=== PATIENT | female | born 1960 | race Caucasian/White ===

== ENCOUNTER 2017-07-30 11:00 | Emergency (ER) | payer OTHER ==
[~2017-07-30] VITALS: Ht 167.6 cm; Wt 98.9 kg
[~2017-07-30 11:00] MED LIST: ALBU90OI INH; ALBU90OI6 INH; AMIT10 PO; AMIT25 PO; AMLO5 PO; AMOCLA875 PO; ASPI81CH PO; ASPI81EC PO; B-COMPLEX; Bactrim Ds Tab1 EACH PO; CEPH500 PO; CHOLESTEROL MED; COLC.6 PO; Cipro500 MG PO; DIABETIC PILL; ERGO400 PO; FENO145 PO; FISH1000 PO; GABA100 PO; IBUP200 PO; IBUP800 PO; INDO50 PO; LEVFLO500 PO; LISI5 PO; LOSA50 PO; LOVA40 PO; MED FOR HTN; METF500C PO; METO25ER PO; Metoprolol Succ25 MG PO; NAPR500 PO; NITR.4SL SL; NITR.6SL SL; Naprosyn500 MG PO; OMEP40CA12 PO; OXYACE5T PO; PRAV20 PO; PROACE100 PO; Percocet 5-3251 EACH PO; Prednisone20 MG PO; Pyridium200 MG PO; QVAR7.3 G1 IH; SERT25 PO; SULTRIDS PO; VITNEPH PO
[2017-07-30 14:13] LABS: Source, Urine Catheter
[2017-07-30 14:17] LABS: Bilirubin, Urine Neg (Neg); Blood, Urine 4+ (Neg); Glucose Qualitative, Urine Neg (Neg); Ketones, Urine Neg (Neg); Leukocyte Esterase, Urine 2+ (Neg); Nitrite, Urine Pos (Neg); Protein, Urine 2+ (Neg); Specific Gravity, Urine 1.015 (1.003-1.022); Urobilinogen, Urine NORM (Normal); pH, Urine 6.5 (5.0-8.0)
[2017-07-30 14:23] LABS: Appearance, Urine Cloudy (Clear); Color, Urine Yellow (P-Yellow)
[2017-07-30 14:25] LABS: Red Blood Cells, Urine Not Seen /hpf (0-2); Squamous Epithelial Cells Not Seen /hpf (Few); White Blood Cells, Urine Not Seen /hpf (0-5)
[2017-07-30 14:26] LABS: Amorphous Mod (0-Heavy); Bacteria Many /hpf
== END 2017-07-30 14:17 | disposition home or self-care (01) ==
LOC: ER 11:00
PROVIDERS: Emergency Medicine
DX: T83.090A Other mechanical complication of cystostomy catheter, initial encounter (principal); N31.9 Neuromuscular dysfunction of bladder, unspecified; I10 Essential (primary) hypertension; F17.200 Nicotine dependence, unspecified, uncomplicated; Z88.5 Allergy status to narcotic agent; Z88.1 Allergy status to other antibiotic agents; Z79.899 Other long term (current) drug therapy; Z79.52 Long term (current) use of systemic steroids
CPT/HCPCS: 81001; 87086; 99283

== ENCOUNTER 2018-01-20 10:54 | Emergency (ER) | payer OTHER ==
[~2018-01-20] VITALS: Ht 167.6 cm; Wt 93.4 kg
[2018-01-20 12:27] LABS: BASOPHILS ABSOLUTE AUTO 0.06 K/mm3 (0.00-0.23); BASOPHILS PERCENT AUTO 1 % (0-2); EOSINOPHILS ABSOLUTE AUTO 0.33 K/mm3 (0.00-0.68); EOSINOPHILS PERCENT AUTO 3 % (0-6); Hematocrit 45.1 % (33.0-51.0); Hemoglobin 14.8 g/dL (11.5-16.0); IMMATURE GRAN ABSOLUTE AUTO 0.04 K/mm3 (0.00-0.10); IMMATURE GRAN PERCENT AUTO 0 % (0-1); LYMPHOCYTES ABSOLUTE AUTO 2.63 K/mm3 (0.84-5.20); LYMPHOCYTES PERCENT AUTO 25 % (21-46); MONOCYTES ABSOLUTE AUTO 0.54 K/mm3 (0.16-1.47); MONOCYTES PERCENT AUTO 5 % (4-13); Mean Corpuscular HGB 30.1 pg (26.0-34.0); Mean Corpuscular HGB Conc 32.8 g/dL (31.5-36.5); Mean Corpuscular Volume 92 fL (80-100); Mean Platelet Volume 11.3 fL (9.1-12.4); NEUTROPHILS ABSOLUTE AUTO 6.76 K/mm3 (1.96-9.15); NEUTROPHILS PERCENT AUTO 65 % (41-73); Platelet Count 220 K/mm3 (150-400); RDW Coefficient Variation 13.5 % (11.7-14.2); RDW Standard Deviation 45.8 fL (35.1-46.3); Red Blood Cell Count 4.91 M/mm3 (3.80-5.20); White Blood Cell Count 10.36 K/mm3 (4.00-11.30)
[2018-01-20 12:33] LABS: Alanine Aminotransfer (ALT/SGP 25 U/L (12-78); Albumin, Blood 3.7 g/dL (3.4-5.0); Albumin/Globulin Ratio 0.9 (0.8-1.8); Alk Phos 90 U/L (50-136); Anion Gap 6 mmol/L (6-16); Aspartate Aminotrans (AST/SGOT 15 U/L (12-37); Bilirubin, Total 0.4 mg/dL (0.1-1.0); Blood Urea Nitrogen 13 mg/dL (8-24); Bun/Creatinine Ratio 18.7 (12.0-20.0); CO2, Blood 26 mmol/L (21-32); Calcium, Blood 9.1 mg/dL (8.5-10.1); Chloride, Blood 111 mmol/L (98-108); Globulin, Blood 3.9 g/dL (2.2-4.0); Glomerular Filtration Rate >60 (60-); Glucose, Blood 92 mg/dL (70-99); Sodium, Blood 143 mmol/L (136-145); Total Protein, Blood 7.6 g/dL (6.4-8.2)
[2018-01-20] MEDS ORDERED: Percocet 5-3251 EACH PO (13:56)
== END 2018-01-20 14:27 | disposition home or self-care (01) ==
LOC: ER 10:54
PROVIDERS: Emergency Medicine
DX: R10.2 Pelvic and perineal pain (principal); I10 Essential (primary) hypertension; F17.200 Nicotine dependence, unspecified, uncomplicated; Z88.5 Allergy status to narcotic agent; Z88.1 Allergy status to other antibiotic agents; Z88.8 Allergy status to other drugs, medicaments and biological substances; Z79.52 Long term (current) use of systemic steroids; Z79.51 Long term (current) use of inhaled steroids
CPT/HCPCS: 36415; 74177; 80053; 85025; 96374; 99284-25; J2405; Q9967

== ENCOUNTER → 2018-01-31 | Outpatient (CLI) | payer OTHER ==
[2018-01-31 14:43] LABS: Source, Urine Clean Catch
[2018-01-31 17:59] LABS: Appearance, Urine Hazy (Clear); Bilirubin, Urine Neg (Neg); Blood, Urine 2+ (Neg); Color, Urine Yellow (P-Yellow); Glucose Qualitative, Urine Neg (Neg); Ketones, Urine Neg (Neg); Leukocyte Esterase, Urine 3+ (Neg); Nitrite, Urine Pos (Neg); Protein, Urine 2+ (Neg); Urobilinogen, Urine NORM (Normal)
[2018-01-31 18:44] LABS: White Blood Cells, Urine 25-50 /hpf (0-5)
[2018-01-31 18:45] LABS: Amorphous Light (0-Heavy); Bacteria Mod /hpf; Squamous Epithelial Cells Few /hpf (Few)
== END ==
LOC: EDSTATUS 13:03 → LAB 14:30 → LAB SHORT 14:30
PROVIDERS: Nurse Practitioner Family
DX: N89.8 Other specified noninflammatory disorders of vagina (principal); R82.90 Unspecified abnormal findings in urine
CPT/HCPCS: 81001; 87086

== ENCOUNTER → 2018-02-05 | Outpatient (CLI) | payer OTHER ==
[2018-02-05 11:26] LABS: Source, Urine Clean Catch
[2018-02-05 12:38] LABS: Appearance, Urine Clear (Clear); Bilirubin, Urine Neg (Neg); Blood, Urine 4+ (Neg); Color, Urine Yellow (P-Yellow); Glucose Qualitative, Urine Neg (Neg); Ketones, Urine Neg (Neg); Leukocyte Esterase, Urine 2+ (Neg); Nitrite, Urine Neg (Neg); Protein, Urine 1+ (Neg); Urobilinogen, Urine NORM (Normal); pH, Urine 6.5 (5.0-8.0)
[2018-02-05 12:54] LABS: Bacteria Few /hpf; Calcium Oxalate Crystals Rare /hpf; Squamous Epithelial Cells Few /hpf (Few)
[2018-02-05 14:36] LABS: Candida species (DNA Probe) Negative (NEGATIVE); G. vaginalis (DNA Probe) Negative (NEGATIVE); T. vaginalis (DNA Probe) Negative (NEGATIVE)
== END ==
LOC: LAB SHORT 11:20 → LAB 11:20
PROVIDERS: Nurse Practitioner Family
DX: R82.90 Unspecified abnormal findings in urine (principal); N89.8 Other specified noninflammatory disorders of vagina
CPT/HCPCS: 81001; 87480; 87510; 87660

== ENCOUNTER 2018-03-29 11:01 | Emergency (ER) | payer OTHER ==
[~2018-03-29] VITALS: Ht 167.6 cm; Wt 93.0 kg
[2018-03-29 12:45] LABS: Calcium, Ionized (POC) 1.17 mmol/L (1.10-1.46); Chloride (POC) 105 mmol/L (98-108); Creatinine (POC) 0.6 mg/dL (0.6-1.0); Glucose (ISTAT POC) 88 mg/dL (70-99); Hemoglobin (POC) 14.6 g/dL (12.0-16.0); Potassium (POC) 3.8 mmol/L (3.5-5.5); Sodium (POC) 144 mmol/L (135-148); Total CO2 (POC) 26 mmol/L (21-32)
[2018-03-29 13:16] LABS: Source, Urine Catheter
[2018-03-29 13:31] LABS: Bilirubin, Urine Neg (Neg); Blood, Urine 4+ (Neg); Glucose Qualitative, Urine Neg (Neg); Ketones, Urine Neg (Neg); Leukocyte Esterase, Urine 3+ (Neg); Nitrite, Urine Pos (Neg); Protein, Urine 2+ (Neg); Specific Gravity, Urine 1.015 (1.003-1.022); Urobilinogen, Urine NORM (Normal)
[2018-03-29 13:42] LABS: Appearance, Urine Cloudy (Clear); Color, Urine Yellow (P-Yellow)
[2018-03-29 13:50] LABS: Bacteria Many /hpf; Squamous Epithelial Cells Few /hpf (Few)
== END 2018-03-29 13:31 | disposition home or self-care (01) ==
LOC: ER 11:01
PROVIDERS: Emergency Medicine
DX: Z46.6 Encounter for fitting and adjustment of urinary device (principal); Z88.5 Allergy status to narcotic agent; Z88.8 Allergy status to other drugs, medicaments and biological substances; Z88.1 Allergy status to other antibiotic agents; Z79.52 Long term (current) use of systemic steroids; I10 Essential (primary) hypertension; F17.200 Nicotine dependence, unspecified, uncomplicated
CPT/HCPCS: 36415; 51705; 80047; 81001; 85014; 87077; 87086; 87186; 99283-25; C2627

== ENCOUNTER 2018-06-12 10:07 | Emergency (ER) | payer OTHER ==
[~2018-06-12] VITALS: Ht 167.6 cm; Wt 95.7 kg
== END 2018-06-12 10:47 | disposition home or self-care (01) ==
LOC: ER 10:07
DX: T83.098A Other mechanical complication of other urinary catheter, initial encounter (principal); I10 Essential (primary) hypertension; Z87.891 Personal history of nicotine dependence
CPT/HCPCS: 51102; 51798; 99283-25

== ENCOUNTER 2020-03-14 05:37 | Day surgery (SDC) | payer OTHER ==
[~2020-03-14] VITALS: Ht 167.6 cm; Wt 108.9 kg
[~2020-03-14 05:37] MED LIST changes: +ALLO300 PO; +AMLODIPINE BESY10 MG PO; +CEFP200 PO; +CHLO25B PO; +CYANOCOBALAMIN 500 MG PO; +DULOXETINE HCL60 M1 PO; +MULTIVITAMINS PO; +NAPROXEN500 MG PO; +OMEP20ER PO; +SYMBICORT 160-4.6 GM INH; +VIT D PO; +[UNRECOGNIZED DRUG - OTHER] PO
--- NOTE | 2020-03-14 07:16 | NUR ---
INTO [facility] VIA W/C ABLE TO AMBULATE SHORT DISTANCES. SUPRAPUBIC CATHETER PATENT, PROVIDED DRAINAGE BAG. History, Chart, Medications and Allergies reviewed before start of procedure.Patient confirms NPO status and agrees with scheduled surgery. Patient reports completing Chlorhexadine shower X2 prior to admission to hospital.Surgical site prepped with 2% Chlorhexidine cloth wipe. Lungs clear T/O to Auscultation.
--- NOTE | 2020-03-14 14:18 | NUR ---
THIS RN RECIEVED REPORT AND IS ASSUMING CARE OF PT. PT SLEEPING. CALL LIGHT IN REACH.
--- NOTE | 2020-03-14 14:40 | NUR ---
THERAPY IN WITH PT, "BELT PRESS OPERATOR" HERE, VSS. PT ON RA.
--- NOTE | 2020-03-14 17:12 | NUR ---
SHIFT SUMMARY PT EATING AND DRINKING, WORKED WITH THERAPY. PT UP TO CHAIR. PT AMBULATED IN HALLWAY WITH WALKER, GB, AND ASSIST. "ROTOR ASSEMBLER" PRESENT WHEN PT WORKED WITH THERAPY. PT CALL LIGHT IN REACH. WARE DRAINING WELL. PT DRINKING LOTS OF WATER SHE NORMALLY DOES PER PT.
[2020-03-15 03:50] LABS: BASOPHILS ABSOLUTE AUTO 0.04 K/mm3 (0.00-0.23); BASOPHILS PERCENT AUTO 0 % (0-2); EOSINOPHILS ABSOLUTE AUTO 0.01 K/mm3 (0.00-0.68); EOSINOPHILS PERCENT AUTO 0 % (0-6); Hemoglobin 10.8 g/dL (11.5-16.0); IMMATURE GRAN ABSOLUTE AUTO 0.11 K/mm3 (0.00-0.10); IMMATURE GRAN PERCENT AUTO 1 % (0-1); LYMPHOCYTES ABSOLUTE AUTO 2.15 K/mm3 (0.84-5.20); LYMPHOCYTES PERCENT AUTO 11 % (21-46); MONOCYTES ABSOLUTE AUTO 1.56 K/mm3 (0.16-1.47); MONOCYTES PERCENT AUTO 8 % (4-13); Mean Corpuscular HGB 30.2 pg (26.0-34.0); Mean Corpuscular HGB Conc 31.8 g/dL (31.5-36.5); Mean Corpuscular Volume 95 fL (80-100); Mean Platelet Volume 11.1 fL (9.1-12.4); NEUTROPHILS ABSOLUTE AUTO 16.57 K/mm3 (1.96-9.15); NEUTROPHILS PERCENT AUTO 81 % (41-73); Platelet Count 224 K/mm3 (150-400); RDW Coefficient Variation 14.1 % (11.7-14.2); RDW Standard Deviation 49.2 fL (35.1-46.3); Red Blood Cell Count 3.58 M/mm3 (3.80-5.20); White Blood Cell Count 20.44 K/mm3 (4.00-11.30)
[2020-03-15 04:07] LABS: Anion Gap 6 mmol/L (6-16); Blood Urea Nitrogen 24 mg/dL (8-24); Bun/Creatinine Ratio 28.4 (12.0-20.0); CO2, Blood 27 mmol/L (21-32); Calcium, Blood 8.7 mg/dL (8.5-10.1); Chloride, Blood 104 mmol/L (98-108); Creatinine, Blood 0.85 mg/dL (0.40-1.00); Glomerular Filtration Rate >60 (60-); Glucose, Blood 268 mg/dL (70-99); Magnesium, Blood 2.1 mg/dL (1.6-2.4); Potassium, Blood 4.3 mmol/L (3.5-5.5); Sodium, Blood 137 mmol/L (136-145)
--- NOTE | 2020-03-15 05:18 | NUR ---
SHIFT SUMMARY: PT POD#1 FOR RT SIVAN. AQUACEL DRESSING C/D/I WITH POLAR PACK IN PLACE. MEDICATED FOR PAIN WITH TORADOL AND TYLENOL IN BEGINNING OF SHIFT. PT BEGAN COMPLAINING OF SIGNIFICANT PAIN AT APPROX 0250. MEDICATED WITH OXY PER EMAR WHICH WAS INEFFECTIVE REQUIRING ADMIN OF 0.5MG IV DILAUDID THIS MORNING. PT DENIES N/T. ABLE TO WIGGLE TOES. CAP REFILL <3 SEC. VSS. AMBULATING WITH SBA AND FWW. ADEQUATE URINE OUTPUT EMPTIED FROM SUPRAPUBIC CATHETER. PT SITTING IN CHAIR THIS MORNING. PLAN FOR PHYSICAL THERAPY AND POSSIBLE DISCHARGE TODAY.
--- NOTE | 2020-03-15 08:51 | NUR ---
MICKEY HERE TO SEE PT.
--- NOTE | 2020-03-15 09:36 | NUR ---
PT WORKING WITH THERAPY.
[2020-03-15] MEDS ORDERED: ACET500 PO (10:09)
[2020-03-15] MEDS ORDERED: OXAYDO5 M1 PO (10:17)
--- NOTE | 2020-03-15 11:10 | NUR ---
DISCHARGE: PT EATING AND DRINKING, PRODUCING URINE, PASSING GAS. PT BEEN CLEARED BY THERAPY TO GO HOME. PT MITER SAWYER PRESENT WITH THERAPY. PT/MITER SAWYER REPORTS UNDERSTANDING OF DISCHARGE INSTRUCTIONS INCLUDING DRESSINGS, POLAR PAC, MEDICATIONS. PT PAIN TOLERABLE ON PO PAIN MEDICATION. PT SENT WITH DRESSINGS, POLAR PAC, SCRIPT AND OTHER PAPERWORK. PT GETTING RIDE HOME.
== END 2020-03-15 11:13 | disposition home or self-care (01) ==
LOC: ORSCMMR 05:37 → ORD 07:30 → ORSCMMR 07:30 → SURS 12:00 → ORSCMMR 03-15 11:13 → SURS 03-15 11:13
PROVIDERS: Orthopaedic Surgery
PROC: 0SR90JA Replacement of Right Hip Joint with Synthetic Substitute, Uncemented, Open Approach (ICD-10-PCS; principal; 2020-03-14 07:30)
DX: M16.11 Unilateral primary osteoarthritis, right hip (principal); I10 Essential (primary) hypertension; I25.10 Atherosclerotic heart disease of native coronary artery without angina pectoris; J44.9 Chronic obstructive pulmonary disease, unspecified; F17.210 Nicotine dependence, cigarettes, uncomplicated; E66.01 Morbid (severe) obesity due to excess calories; Z68.38 Body mass index [BMI] 38.0-38.9, adult; Z79.899 Other long term (current) drug therapy; Z79.82 Long term (current) use of aspirin
CPT/HCPCS: 36415; 72170; 80048; 83735; 85025; 88300; 97110; 97116; 97162; 97530; A9270; A9270-GY; C1776; J0171; J0330; J0461; J0690; J0735; J1100; J1170; J1885; J2250; J2370; J2405; J2704; J2795; J3010; J7120

== ENCOUNTER → 2020-09-09 | Outpatient (CLI) | payer OTHER ==
[~2020-09-09] MED LIST changes: +ACET500 PO; +OXAYDO5 M1 PO
[2020-09-09 11:58] LABS: BASOPHILS ABSOLUTE AUTO 0.09 K/mm3 (0.00-0.23); BASOPHILS PERCENT AUTO 1 % (0-2); EOSINOPHILS ABSOLUTE AUTO 0.29 K/mm3 (0.00-0.68); EOSINOPHILS PERCENT AUTO 3 % (0-6); Hematocrit 46.5 % (33.0-51.0); Hemoglobin 15.1 g/dL (11.5-16.0); IMMATURE GRAN ABSOLUTE AUTO 0.05 K/mm3 (0.00-0.10); IMMATURE GRAN PERCENT AUTO 0 % (0-1); LYMPHOCYTES PERCENT AUTO 32 % (21-46); MONOCYTES PERCENT AUTO 6 % (4-13); Mean Corpuscular HGB 29.2 pg (26.0-34.0); Mean Corpuscular HGB Conc 32.5 g/dL (31.5-36.5); Mean Corpuscular Volume 90 fL (80-100); Mean Platelet Volume 11.4 fL (9.1-12.4); NEUTROPHILS ABSOLUTE AUTO 6.81 K/mm3 (1.96-9.15); NEUTROPHILS PERCENT AUTO 59 % (41-73); Platelet Count 275 K/mm3 (150-400); RDW Coefficient Variation 15.1 % (11.7-14.2); RDW Standard Deviation 49.4 fL (35.1-46.3); Red Blood Cell Count 5.18 M/mm3 (3.80-5.20); White Blood Cell Count 11.64 K/mm3 (4.00-11.30)
[2020-09-09 12:25] LABS: Anion Gap 9 mmol/L (6-16); Blood Urea Nitrogen 15 mg/dL (8-24); Bun/Creatinine Ratio 20.3 (12.0-20.0); CO2, Blood 28 mmol/L (21-32); Calcium, Blood 9.5 mg/dL (8.5-10.1); Chloride, Blood 104 mmol/L (98-108); Creatinine, Blood 0.74 mg/dL (0.40-1.00); Glomerular Filtration Rate >60 (60-); Glucose, Blood 131 mg/dL (70-99); Potassium, Blood 4.5 mmol/L (3.5-5.5); Sodium, Blood 141 mmol/L (136-145); Thyroid Stimulating Hormone 3.811 uIU/mL (0.360-4.800)
== END | disposition home or self-care (01) ==
LOC: LAB SHORT 11:53 → LAB EV 11:53
PROVIDERS: Physician Assistant Surgical
DX: M79.2 Neuralgia and neuritis, unspecified (principal)
CPT/HCPCS: 80048; 82607; 84443; 85025

== ENCOUNTER 2020-12-09 08:57 | Emergency (ER) | payer OTHER ==
[~2020-12-09] VITALS: Ht 167.6 cm; Wt 108.9 kg
[2020-12-09 10:15] LABS: Source, Urine Catheter
[2020-12-09 10:34] LABS: Appearance, Urine Clear (Clear); Bilirubin, Urine Neg (Neg); Blood, Urine 2+ (Neg); Color, Urine Yellow (P-Yellow); Glucose Qualitative, Urine Neg (Neg); Ketones, Urine Neg (Neg); Leukocyte Esterase, Urine 1+ (Neg); Nitrite, Urine Pos (Neg); Protein, Urine 3+ (Neg); Urobilinogen, Urine NORM (Normal)
[2020-12-09 11:00] LABS: Bacteria Mod /hpf; Squamous Epithelial Cells Rare /hpf (Few)
[2020-12-09 11:04] LABS: Renal Epithelial Not Seen /hpf (0-Rare); Transitional Epithelial Cells Mod /hpf (0-Rare)
[2020-12-09] MEDS ORDERED: LEVO750 PO (11:14)
[2020-12-09] MEDS ORDERED: HYDR1TAB94 PO (11:14)
== END 2020-12-09 11:46 | disposition home or self-care (01) ==
LOC: ER 08:57
PROVIDERS: Physician Assistant
DX: N39.0 Urinary tract infection, site not specified (principal); Z79.82 Long term (current) use of aspirin; Z79.899 Other long term (current) drug therapy
CPT/HCPCS: 76857; 81001; 87086; 99284-25; A9270

== ENCOUNTER 2021-07-24 06:04 | Day surgery (SDC) | payer OTHER ==
[~2021-07-24] VITALS: Ht 167.6 cm; Wt 110.3 kg
[~2021-07-24 06:04] MED LIST changes: +ATOR20; +ATOR20 PO; +BUDE.25 INH; +DICLOFENAC SOD100 GM TOP; +HYDR1TAB94 PO; +LEVO750 PO; +METF500 PO; +NITRO-DUR1 EAC1 TOP; +Prinivil10 MG PO
[2021-07-24] MEDS ORDERED: IBUP200 PO (06:24)
--- NOTE | 2021-07-24 08:28 | NUR ---
07/24/21 0828 Nelly Woodall PATIENT ARRIVED TO OR WITH SUPRAPUBIC CATHETER IN PLACE.
--- NOTE | 2021-07-24 10:38 | NUR ---
DEVELOPMENT ASSOCIATE HERE FOR HIP XRAY. MEDICATED FOR PAIN WHEN PATIENT REPOSITIONED FOR XRAY, BEGAN TO MOAN LOUDLY AND FURROW BROW. PATIENT WOULD NOT GIVE PAIN NUMBER ON PAIN SCALE.
--- NOTE | 2021-07-24 10:39 | NUR ---
POST ANALGESIC AND XRAY COMPLETE, PATIENT LESS VERBAL WITH MOANING AND CONTINUES TO MOAN. PATIENT NOW RATES PAIN 9-10/10 TO LEFT HIP.
--- NOTE | 2021-07-24 10:47 | NUR ---
POLAR ICE PAIN APPLIED TO LEFT HIP.
--- NOTE | 2021-07-24 17:02 | NUR ---
SHIFT SUMMARY NEW ADMIT POST L SIVAN WITH DR HINDS. INITIALLY SEVERE PAIN UNCONTROLLED WITH PAIN MEDS. PAIN IMPROVED WITH MOVEMENT AND GETTING UP TO CHAIR WITH PHYSICAL THERAPY. LEFT HIP INCISION WITH PRIMO AND AQUACEL. LEFT HIP BRUISED. TOLERATING ADA DIET. ACHS WITH SS INSULIN. POST OP VSS. IN RECLINER WITH LEGS ELEVATED AT THIS TIME. SALINE LOCKED. SUPRAPUBIC CATHETER AT BASELINE. CLEAR YELLOW URINE.
--- NOTE | 2021-07-25 04:11 | NUR ---
SUMMARY PT PAIN MANAGED WELL THROUGHOUT SHIFT. PT CATH DRAINING TO GRAVITY. PT DRESSING C/D/I. PT HAS SLEPT WELL DURING SHIFT. PT CURRENTLY SLEEPING AND IN NO DISTRESS. CALL LIGHT IN REACH.
[2021-07-25 04:47] LABS: BASOPHILS ABSOLUTE AUTO 0.03 K/mm3 (0.00-0.23); BASOPHILS PERCENT AUTO 0 % (0-2); EOSINOPHILS ABSOLUTE AUTO 0.04 K/mm3 (0.00-0.68); EOSINOPHILS PERCENT AUTO 0 % (0-6); Hematocrit 42.3 % (33.0-51.0); Hemoglobin 13.4 g/dL (11.5-16.0); IMMATURE GRAN ABSOLUTE AUTO 0.11 K/mm3 (0.00-0.10); IMMATURE GRAN PERCENT AUTO 1 % (0-1); LYMPHOCYTES ABSOLUTE AUTO 1.89 K/mm3 (0.84-5.20); LYMPHOCYTES PERCENT AUTO 12 % (21-46); MONOCYTES PERCENT AUTO 7 % (4-13); Mean Corpuscular HGB 30.2 pg (26.0-34.0); Mean Corpuscular HGB Conc 31.7 g/dL (31.5-36.5); Mean Corpuscular Volume 96 fL (80-100); Mean Platelet Volume 11.8 fL (9.1-12.4); NEUTROPHILS ABSOLUTE AUTO 13.18 K/mm3 (1.96-9.15); NEUTROPHILS PERCENT AUTO 80 % (41-73); Platelet Count 182 K/mm3 (150-400); RDW Coefficient Variation 13.2 % (11.7-14.2); RDW Standard Deviation 46.8 fL (35.1-46.3); Red Blood Cell Count 4.43 M/mm3 (3.80-5.20); White Blood Cell Count 16.45 K/mm3 (4.00-11.30)
[2021-07-25 05:09] LABS: Anion Gap 8 mmol/L (6-16); Blood Urea Nitrogen 22 mg/dL (8-24); Bun/Creatinine Ratio 27.5 (12.0-20.0); CO2, Blood 27 mmol/L (21-32); Chloride, Blood 103 mmol/L (98-108); Glomerular Filtration Rate >60 (60-); Glucose, Blood 245 mg/dL (70-99); Magnesium, Blood 2.3 mg/dL (1.6-2.4); Potassium, Blood 4.6 mmol/L (3.5-5.5); Sodium, Blood 138 mmol/L (136-145)
[2021-07-25] MEDS ORDERED: ACET500 PO (10:16)
[2021-07-25] MEDS ORDERED: OXYC5 PO (10:16)
[2021-07-25] MEDS ORDERED: HUMALOG KW100 UNIT/1 SC (12:57)
--- NOTE | 2021-07-25 13:53 | NUR ---
DISCHARGE PT PROVIDED WITH WRITTEN AND VERBAL DISCHARGE INSTRUCTIONS BY PRETTY BURCH. PRESCRIPTIONS GIVEN TO PT FOR DIABETIC SUPPLIES AND MEDICATIONS. CLEAN DRESSINGS PROVIDED. PT CLEARED THERAPY, TOLERATED PO, ABLE TO VOID AND PAIN MANAGED WITH ORAL MEDICATION PRIOR TO DISCHARGE. VSS.
== END 2021-07-25 13:15 | disposition home or self-care (01) ==
LOC: ORSCMMR 06:04 → SURS 11:51 → ORSCMMR 07-25 13:15
PROVIDERS: Orthopaedic Surgery
PROC: 0SRB0JA Replacement of Left Hip Joint with Synthetic Substitute, Uncemented, Open Approach (ICD-10-PCS; principal; 2021-07-24 07:30)
DX: M16.12 Unilateral primary osteoarthritis, left hip (principal); J44.9 Chronic obstructive pulmonary disease, unspecified; I25.10 Atherosclerotic heart disease of native coronary artery without angina pectoris; E11.9 Type 2 diabetes mellitus without complications; K21.9 Gastro-esophageal reflux disease without esophagitis; E78.5 Hyperlipidemia, unspecified; I10 Essential (primary) hypertension; Z87.891 Personal history of nicotine dependence; I25.2 Old myocardial infarction; Z79.899 Other long term (current) drug therapy; Z79.84 Long term (current) use of oral hypoglycemic drugs; E66.01 Morbid (severe) obesity due to excess calories; Z68.39 Body mass index [BMI] 39.0-39.9, adult
CPT/HCPCS: 36415; 72170; 80048; 82947; 83735; 85025; 97110; 97116; 97162; A9270; C1776; J0171; J0690; J0735; J1100; J1170; J1815; J1885; J2250; J2370; J2405; J2704; J2795; J3010; J7120

== ENCOUNTER 2021-11-23 14:51 | Emergency (ER) | payer OTHER ==
[~2021-11-23] VITALS: Ht 167.6 cm; Wt 64.9 kg
[~2021-11-23 14:51] MED LIST changes: +HUMALOG KW100 UNIT/1 SC; +OXYC5 PO
[2021-11-23 16:08] LABS: BASOPHILS ABSOLUTE AUTO 0.06 K/mm3 (0.00-0.23); BASOPHILS PERCENT AUTO 1 % (0-2); EOSINOPHILS ABSOLUTE AUTO 0.26 K/mm3 (0.00-0.68); EOSINOPHILS PERCENT AUTO 2 % (0-6); Hematocrit 47.5 % (33.0-51.0); Hemoglobin 15.6 g/dL (11.5-16.0); IMMATURE GRAN ABSOLUTE AUTO 0.07 K/mm3 (0.00-0.10); IMMATURE GRAN PERCENT AUTO 1 % (0-1); LYMPHOCYTES ABSOLUTE AUTO 3.86 K/mm3 (0.84-5.20); LYMPHOCYTES PERCENT AUTO 31 % (21-46); MONOCYTES ABSOLUTE AUTO 0.77 K/mm3 (0.16-1.47); MONOCYTES PERCENT AUTO 6 % (4-13); Mean Corpuscular HGB 29.5 pg (26.0-34.0); Mean Corpuscular HGB Conc 32.8 g/dL (31.5-36.5); Mean Corpuscular Volume 90 fL (80-100); Mean Platelet Volume 11.5 fL (9.1-12.4); NEUTROPHILS ABSOLUTE AUTO 7.44 K/mm3 (1.96-9.15); NEUTROPHILS PERCENT AUTO 60 % (41-73); Platelet Count 224 K/mm3 (150-400); RDW Coefficient Variation 13.5 % (11.7-14.2); RDW Standard Deviation 44.8 fL (35.1-46.3); Red Blood Cell Count 5.28 M/mm3 (3.80-5.20); White Blood Cell Count 12.46 K/mm3 (4.00-11.30)
[2021-11-23 16:23] LABS: Albumin, Blood 3.7 g/dL (3.4-5.0); Albumin/Globulin Ratio 0.9 (0.8-1.8); Bilirubin, Total 0.3 mg/dL (0.1-1.0); Bun/Creatinine Ratio 26.8 (12.0-20.0); Calcium, Blood 9.9 mg/dL (8.5-10.1); Creatinine, Blood 0.6 mg/dL (0.40-1.00); Globulin, Blood 4.1 g/dL (2.2-4.0); Total Protein, Blood 7.8 g/dL (6.4-8.2)
[2021-11-23 16:47] LABS: Influenza A, PCR NEGATIVE (NEGATIVE); Influenza B, PCR NEGATIVE (NEGATIVE); Resp Syncytial Virus, PCR NEGATIVE (NEGATIVE); SARS-Cov-2 (COVID-19) PCR, MMC NEGATIVE (NEGATIVE)
== END 2021-11-23 18:21 | disposition left against medical advice (07) ==
LOC: ER 14:51
PROVIDERS: Physician Assistant
DX: R51.9 Headache, unspecified (principal); R07.9 Chest pain, unspecified; Z53.21 Procedure and treatment not carried out due to patient leaving prior to being seen by health care provider; Z20.822 Contact with and (suspected) exposure to COVID-19
CPT/HCPCS: 0241U; 36415; 71045; 80053; 83880; 84484; 85025; 93005; 93010; 99282-25

== ENCOUNTER 2022-12-18 08:09 | Emergency (ER) | payer OTHER ==
[~2022-12-18] VITALS: Ht 167.6 cm; Wt 103.0 kg
[2022-12-18 10:03] LABS: BASOPHILS ABSOLUTE AUTO 0.11 K/mm3 (0.00-0.23); BASOPHILS PERCENT AUTO 1 % (0-2); EOSINOPHILS PERCENT AUTO 3 % (0-6); Hematocrit 44.5 % (33.0-51.0); Hemoglobin 14.8 g/dL (11.5-16.0); IMMATURE GRAN ABSOLUTE AUTO 0.13 K/mm3 (0.00-0.10); IMMATURE GRAN PERCENT AUTO 1 % (0-1); LYMPHOCYTES ABSOLUTE AUTO 3.57 K/mm3 (0.84-5.20); LYMPHOCYTES PERCENT AUTO 24 % (21-46); MONOCYTES ABSOLUTE AUTO 1.05 K/mm3 (0.16-1.47); MONOCYTES PERCENT AUTO 7 % (4-13); Mean Corpuscular HGB 30.4 pg (26.0-34.0); Mean Corpuscular HGB Conc 33.3 g/dL (31.5-36.5); Mean Corpuscular Volume 91 fL (80-100); Mean Platelet Volume 10.9 fL (9.1-12.4); NEUTROPHILS ABSOLUTE AUTO 9.62 K/mm3 (1.96-9.15); NEUTROPHILS PERCENT AUTO 65 % (41-73); Platelet Count 294 K/mm3 (150-400); RDW Coefficient Variation 13.2 % (11.7-14.2); RDW Standard Deviation 44.2 fL (35.1-46.3); Red Blood Cell Count 4.87 M/mm3 (3.80-5.20); White Blood Cell Count 14.88 K/mm3 (4.00-11.30)
[2022-12-18 10:23] LABS: Albumin, Blood 3.6 g/dL (3.4-5.0); Albumin/Globulin Ratio 0.9 (0.8-1.8); Bilirubin, Total 0.4 mg/dL (0.1-1.0); Bun/Creatinine Ratio 18.9 (12.0-20.0); Calcium, Blood 9.5 mg/dL (8.5-10.1); Creatinine, Blood 0.69 mg/dL (0.40-1.00); Total Protein, Blood 7.6 g/dL (6.4-8.2)
[2022-12-18] MEDS ORDERED: CEFP200 PO (12:05)
[2022-12-18] MEDS ORDERED: Percocet 7.5-31 EACH PO (12:05)
[2022-12-18 12:30] VITALS: BP 130/52
[2022-12-18 15:15] LABS: Candida species (DNA Probe) Positive (NEGATIVE); G. vaginalis (DNA Probe) Negative (NEGATIVE); T. vaginalis (DNA Probe) Negative (NEGATIVE)
[2022-12-20 02:31] LABS: CHLAMYDIA TRACHOMATIS, NAA Negative (Negative)
== END 2022-12-18 12:34 | disposition home or self-care (01) ==
LOC: ER 08:09
PROVIDERS: Physician Assistant
DX: N39.0 Urinary tract infection, site not specified (principal); R10.2 Pelvic and perineal pain; Z88.8 Allergy status to other drugs, medicaments and biological substances; Z88.1 Allergy status to other antibiotic agents; Z88.5 Allergy status to narcotic agent; Z79.899 Other long term (current) drug therapy; Z79.82 Long term (current) use of aspirin; Z79.84 Long term (current) use of oral hypoglycemic drugs; Z79.4 Long term (current) use of insulin; I10 Essential (primary) hypertension
CPT/HCPCS: 74177; 80053; 85025; 87480; 87491; 87510; 87591; 87660; 96372-59; 96374-59; 99284-25; J1170; J3010; Q9967

== ENCOUNTER 2023-01-05 11:23 | Emergency (ER) | payer OTHER ==
[~2023-01-05] VITALS: Ht 167.6 cm; Wt 99.8 kg
[~2023-01-05 11:23] MED LIST changes: +Percocet 7.5-31 EACH PO
[2023-01-05 12:00] VITALS: BP 180/118
== END 2023-01-05 12:42 | disposition left against medical advice (07) ==
LOC: ER 11:23
DX: R31.9 Hematuria, unspecified (principal); I10 Essential (primary) hypertension; I25.2 Old myocardial infarction; Z79.4 Long term (current) use of insulin; Z79.82 Long term (current) use of aspirin; Z79.84 Long term (current) use of oral hypoglycemic drugs; Z79.899 Other long term (current) drug therapy; Z87.891 Personal history of nicotine dependence; Z88.1 Allergy status to other antibiotic agents; Z88.8 Allergy status to other drugs, medicaments and biological substances; Z96.0 Presence of urogenital implants
CPT/HCPCS: 99282

== ENCOUNTER → 2023-04-17 | Outpatient (CLI) | payer OTHER ==
[2023-04-17 15:46] LABS: BASOPHILS ABSOLUTE AUTO 0.08 K/mm3 (0.00-0.23); BASOPHILS PERCENT AUTO 1 % (0-2); EOSINOPHILS ABSOLUTE AUTO 0.53 K/mm3 (0.00-0.68); EOSINOPHILS PERCENT AUTO 4 % (0-6); Hematocrit 50.4 % (33.0-51.0); Hemoglobin 15.7 g/dL (11.5-16.0); IMMATURE GRAN ABSOLUTE AUTO 0.05 K/mm3 (0.00-0.10); IMMATURE GRAN PERCENT AUTO 0 % (0-1); LYMPHOCYTES ABSOLUTE AUTO 2.81 K/mm3 (0.84-5.20); LYMPHOCYTES PERCENT AUTO 22 % (21-46); MONOCYTES ABSOLUTE AUTO 0.72 K/mm3 (0.16-1.47); MONOCYTES PERCENT AUTO 6 % (4-13); Mean Corpuscular HGB 28.6 pg (26.0-34.0); Mean Corpuscular HGB Conc 31.2 g/dL (31.5-36.5); Mean Corpuscular Volume 92 fL (80-100); Mean Platelet Volume 11.7 fL (9.1-12.4); NEUTROPHILS ABSOLUTE AUTO 8.77 K/mm3 (1.96-9.15); NEUTROPHILS PERCENT AUTO 68 % (41-73); Platelet Count 303 K/mm3 (150-400); RDW Coefficient Variation 13.6 % (11.7-14.2); RDW Standard Deviation 46.2 fL (35.1-46.3); Red Blood Cell Count 5.48 M/mm3 (3.80-5.20); White Blood Cell Count 12.96 K/mm3 (4.00-11.30)
== END | disposition home or self-care (01) ==
LOC: LAB 14:27 → LAB SHORT 14:27
PROVIDERS: Nurse Practitioner Family
DX: Z01.812 Encounter for preprocedural laboratory examination (principal)
CPT/HCPCS: 85025

== ENCOUNTER 2023-05-17 10:45 | Day surgery (SDC) | payer OTHER ==
[2023-05-17] VITALS (16 sets, daily range): BP systolic 139–192; BP diastolic 69–113
[~2023-05-17] VITALS: Ht 167.6 cm; Wt 96.4 kg
[~2023-05-17 10:45] MED LIST changes: +NAPROXEN250 M1 PO
[2023-05-17] MEDS ORDERED: METO50ER PO (11:18)
--- NOTE | 2023-05-17 12:17 | NUR ---
Ambulatory in Day Surgery. History, Chart, Medications and Allergies reviewed before start of procedure. Lungs clear T/O to Auscultation. Patient confirms NPO status and agrees with scheduled surgery. Pre-Op teaching done. Pt verbalizes understanding. Patient States Post-Procedure ride home has been arranged. PT BELONGINGS PLACED UNDERNEATH [facility] FOR SAFEKEEPING.
--- NOTE | 2023-05-17 14:20 | NUR ---
1230 PT C/O 10/10 GROIN "VAGINAL" PAIN. PT STANDING AT BEDSIDE, SWAYING BACK & FORTH. PT STS TOO PAINFUL TO SIT OR LAY IN BED. PT TEARFUL, WHIMPERING TO SELF, AT TIMES CRYING OUT. PT STS SHE DID NOT TAKE HER PAIN MEDICATION THIS AM FOR HERNIA PAIN. DENIES CHRONIC PAIN OR OTHER SOURCES OF DISCOMFORT. UPON ARRIVAL TO [facility], PT REQUESTED ICE PACK FOR PAIN. TWO ICE PACKS PROVIDED, PT PLACED ON GROIN, STS MILD RELIEF BUT STILL C/O 10/10 PAIN. MD NOTIFIED & VERBAL ORDER FOR 50MCG FENTANYL IVP ONCE. MEDICATION ADMINISTERED; UPON RECHECK, PT STS GREAT RELIEF WITH 3/10 PAIN. PT STS PAIN IS MANAGABLE AT THIS TIME WITH USE OF ICE PACKS.
--- NOTE | 2023-05-17 18:07 | NUR ---
Patient up to Ambulate independently. Gait steady. Discharge instructions reviewed with patient. Patient verbalizes understanding. Copy given to patient to take home. Patient States Post-Procedure ride home has been arranged. Discharged via wheelchair to private car for ride home.
== END 2023-05-17 18:08 | disposition home or self-care (01) ==
LOC: ORSCMMR 10:45 → ORD 12:30 → ORSCMMR 12:30
PROVIDERS: Surgery
PROC: 0WUF0JZ Supplement Abdominal Wall with Synthetic Substitute, Open Approach (ICD-10-PCS; principal; 2023-05-17 12:30)
PROC: 8E0W4CZ Robotic Assisted Procedure of Trunk Region, Percutaneous Endoscopic Approach (ICD-10-PCS; principal; 2023-05-17 12:30)
PROC: 07BH0ZX Excision of Right Inguinal Lymphatic, Open Approach, Diagnostic (ICD-10-PCS; principal; 2023-05-17 12:30)
PROC: 0YUA4JZ Supplement Bilateral Inguinal Region with Synthetic Substitute, Percutaneous Endoscopic Approach (ICD-10-PCS; principal; 2023-05-17 12:30)
DX: K40.20 Bilateral inguinal hernia, without obstruction or gangrene, not specified as recurrent (principal); K43.6 Other and unspecified ventral hernia with obstruction, without gangrene; D36.0 Benign neoplasm of lymph nodes; R10.31 Right lower quadrant pain; I10 Essential (primary) hypertension; G47.33 Obstructive sleep apnea (adult) (pediatric); E11.9 Type 2 diabetes mellitus without complications; J44.9 Chronic obstructive pulmonary disease, unspecified; Z87.891 Personal history of nicotine dependence; I25.10 Atherosclerotic heart disease of native coronary artery without angina pectoris; K21.9 Gastro-esophageal reflux disease without esophagitis; E66.9 Obesity, unspecified; Z68.34 Body mass index [BMI] 34.0-34.9, adult; Z79.4 Long term (current) use of insulin; Z79.899 Other long term (current) drug therapy; E78.5 Hyperlipidemia, unspecified; F17.210 Nicotine dependence, cigarettes, uncomplicated
CPT/HCPCS: 82947; 88305; A9270; C1781; J0690; J1100; J1885; J2250; J2405; J2704; J3010; J7120

== ENCOUNTER 2023-06-04 08:53 | Emergency (ER) | payer OTHER ==
[~2023-06-04] VITALS: Ht 167.6 cm; Wt 93.9 kg
[~2023-06-04 08:53] MED LIST changes: +METO50ER PO
[2023-06-04 09:16] LABS: BASOPHILS PERCENT AUTO 1 % (0-2); EOSINOPHILS ABSOLUTE AUTO 0.36 K/mm3 (0.00-0.68); EOSINOPHILS PERCENT AUTO 2 % (0-6); Hematocrit 41.8 % (33.0-51.0); Hemoglobin 13.4 g/dL (11.5-16.0); IMMATURE GRAN PERCENT AUTO 1 % (0-1); LYMPHOCYTES PERCENT AUTO 17 % (21-46); MONOCYTES ABSOLUTE AUTO 0.82 K/mm3 (0.16-1.47); MONOCYTES PERCENT AUTO 5 % (4-13); Mean Corpuscular HGB 28.4 pg (26.0-34.0); Mean Corpuscular HGB Conc 32.1 g/dL (31.5-36.5); Mean Corpuscular Volume 89 fL (80-100); NEUTROPHILS ABSOLUTE AUTO 13.17 K/mm3 (1.96-9.15); NEUTROPHILS PERCENT AUTO 75 % (41-73); Platelet Count 355 K/mm3 (150-400); RDW Standard Deviation 45.2 fL (35.1-46.3); Red Blood Cell Count 4.72 M/mm3 (3.80-5.20); White Blood Cell Count 17.45 K/mm3 (4.00-11.30)
[2023-06-04 09:37] LABS: Albumin, Blood 3.5 g/dL (3.4-5.0); Albumin/Globulin Ratio 0.8 (0.8-1.8); Bilirubin, Total 0.8 mg/dL (0.1-1.0); Bun/Creatinine Ratio 17.4 (12.0-20.0); Calcium, Blood 10.1 mg/dL (8.5-10.1); Creatinine, Blood 0.58 mg/dL (0.40-1.00); Globulin, Blood 4.3 g/dL (2.2-4.0); Magnesium, Blood 2.3 mg/dL (1.6-2.4); Total Protein, Blood 7.8 g/dL (6.4-8.2)
[2023-06-04 10:33] LABS: Influenza A Negative (NEGATIVE); Influenza B Negative (NEGATIVE)
[2023-06-04 10:43] LABS: SARS-Cov-2 (COVID-19) PCR, MMC NEGATIVE (NEGATIVE)
[2023-06-04 12:45] VITALS: BP 158/77
[2023-06-04] MEDS ORDERED: ONDA4ODT MM (12:54)
[2023-06-04] MEDS ORDERED: SULTRIDS PO (12:54)
== END 2023-06-04 13:03 | disposition home or self-care (01) ==
LOC: ER 08:53
PROVIDERS: Student in an Organized Health Care Education/Training Program
DX: R07.81 Pleurodynia (principal); R51.9 Headache, unspecified; R11.2 Nausea with vomiting, unspecified; L76.34 Postprocedural seroma of skin and subcutaneous tissue following other procedure; Y83.8 Other surgical procedures as the cause of abnormal reaction of the patient, or of later complication, without mention of misadventure at the time of the procedure; K11.8 Other diseases of salivary glands; R91.1 Solitary pulmonary nodule; I25.10 Atherosclerotic heart disease of native coronary artery without angina pectoris; I10 Essential (primary) hypertension; E11.9 Type 2 diabetes mellitus without complications; Z88.8 Allergy status to other drugs, medicaments and biological substances; Z88.1 Allergy status to other antibiotic agents; Z88.5 Allergy status to narcotic agent; Z79.899 Other long term (current) drug therapy; Z79.82 Long term (current) use of aspirin; Z79.84 Long term (current) use of oral hypoglycemic drugs; Z20.822 Contact with and (suspected) exposure to COVID-19
CPT/HCPCS: 36415; 70450; 71260; 74177; 80053; 83605; 83690; 83735; 83880; 84145; 84484; 85025; 87040; 87804; 87807; 93005; 93010; 96374-59; 96375-59; 99284-25; A9270; J1885; J2405; J7030; Q9967; U0002

== ENCOUNTER → 2023-06-18 | Outpatient (CLI) | payer OTHER ==
[~2023-06-18] MED LIST changes: +ONDA4ODT MM
[2023-06-19 12:28] LABS: Candida species (DNA Probe) Positive (NEGATIVE); G. vaginalis (DNA Probe) Negative (NEGATIVE); T. vaginalis (DNA Probe) Negative (NEGATIVE)
== END | disposition home or self-care (01) ==
LOC: LAB SHORT 13:33 → LAB 13:33
PROVIDERS: Family Medicine
DX: N76.0 Acute vaginitis (principal)
CPT/HCPCS: 87480; 87510; 87660

== ENCOUNTER 2023-11-19 15:27 | Inpatient (IN) | payer BC ==
[~2023-11-19] VITALS: Ht 167.6 cm; Wt 72.1 kg
[~2023-11-19 15:27] MED LIST changes: +ADULT GLYCERIN1 EACH PR; +CONSTULOSE10 GM/155 PO; +DIAZEPAM10 MG PO
[2023-11-19 16:00] LABS: BASOPHILS ABSOLUTE AUTO 0.07 K/mm3 (0.00-0.23); BASOPHILS PERCENT AUTO 0 % (0-2); EOSINOPHILS ABSOLUTE AUTO 0.31 K/mm3 (0.00-0.68); EOSINOPHILS PERCENT AUTO 2 % (0-6); Hematocrit 32.7 % (33.0-51.0); Hemoglobin 10.3 g/dL (11.5-16.0); IMMATURE GRAN ABSOLUTE AUTO 0.14 K/mm3 (0.00-0.10); IMMATURE GRAN PERCENT AUTO 1 % (0-1); LYMPHOCYTES ABSOLUTE AUTO 3.58 K/mm3 (0.84-5.20); LYMPHOCYTES PERCENT AUTO 19 % (21-46); MONOCYTES ABSOLUTE AUTO 1.43 K/mm3 (0.16-1.47); MONOCYTES PERCENT AUTO 8 % (4-13); Mean Corpuscular HGB 26.3 pg (26.0-34.0); Mean Corpuscular HGB Conc 31.5 g/dL (31.5-36.5); Mean Corpuscular Volume 84 fL (80-100); Mean Platelet Volume 10.2 fL (9.1-12.4); NEUTROPHILS ABSOLUTE AUTO 13.13 K/mm3 (1.96-9.15); NEUTROPHILS PERCENT AUTO 70 % (41-73); Platelet Count 358 K/mm3 (150-400); RDW Coefficient Variation 14.5 % (11.7-14.2); RDW Standard Deviation 43.9 fL (35.1-46.3); Red Blood Cell Count 3.91 M/mm3 (3.80-5.20); White Blood Cell Count 18.66 K/mm3 (4.00-11.30)
[2023-11-19 16:21] LABS: Albumin, Blood 2.9 g/dL (3.4-5.0); Albumin/Globulin Ratio 0.6 (0.8-1.8); Bilirubin, Total 0.3 mg/dL (0.1-1.0); Bun/Creatinine Ratio 10.9 (12.0-20.0); Calcium, Blood 11.9 mg/dL (8.5-10.1); Creatinine, Blood 1.56 mg/dL (0.40-1.00); Globulin, Blood 4.9 g/dL (2.2-4.0); Potassium, Blood 4.5 mmol/L (3.5-5.5); Total Protein, Blood 7.8 g/dL (6.4-8.2)
[2023-11-19] MEDS ORDERED: Ketorolac Tromethamine 30mg Vial IV ONE (18:00)
[2023-11-19] MEDS ORDERED: Morphine Sulfate 4 MG/1 ML Injection IV ONE (21:50)
[2023-11-19] MEDS ORDERED: Ondansetron HCl 2 MG / ML 2ML Vial IV ONE (21:50)
[2023-11-19] MEDS ORDERED: Ondansetron HCl 2 MG / ML 2ML Vial IV PRN (22:30)
[2023-11-19] MEDS ORDERED: Enoxaparin 30 MG/0.3 ML SYR SC SCH (23:00)
[2023-11-19] MEDS ORDERED: HIPREX1 G1 PO (23:37)
--- NOTE | 2023-11-19 23:40 | NUR ---
GOT REPORT FROM MARCIN ELLSWORTH IN ED AT 2329. PT TO ROOM AROUND 2340. PT DRESSED DOWN INTO A GOWN AND TUCKED INTO BED. PT GIVEN A WARE BAG TO COLLECT URINE FROM HER INDWELLING CATHETER. PT HAS A 20 GAUGE R AC IV. PT STARTED ON 1/2 NS. PT TO BE GIVEN ANTIBIOTICS SOON. PT HAVING VULVA PAIN AND HEMATURIA. BED IN LOW POSITION, PT GIVEN CALL LIGHT AND STS UNDERSTANDING ON HOW TO USE IT. WILL CONTINUE TO MONITOR.
[2023-11-19 23:42] LABS: Source, Urine Clean Catch
[2023-11-19 23:53] VITALS: BP 122/64
[2023-11-19 23:58] LABS: Appearance, Urine Turbid (Clear); Bilirubin, Urine Neg (Neg); Blood, Urine 5+ (Neg); Color, Urine Yellow (P-Yellow); Glucose Qualitative, Urine Neg (Neg); Ketones, Urine Neg (Neg); Leukocyte Esterase, Urine 3+ (Neg); Nitrite, Urine Neg (Neg); Protein, Urine 3+ (Neg); Specific Gravity, Urine 1.015 (1.003-1.022); Urobilinogen, Urine NORM (Normal); pH, Urine 6.5 (5.0-8.0)
[2023-11-20 00:05] LABS: Amorphous Light (0-Heavy); Bacteria Many /hpf; Squamous Epithelial Cells Mod /hpf (Few); White Blood Cells, Urine TNTC /hpf (0-5)
[2023-11-20] MEDS ORDERED: Sodium Chloride 0.45% 1,000 ML IV ONE (00:40)
[2023-11-20] MEDS ORDERED: CefTRIAXone Sodium 1,000 MG in NS 100 ML IV SCH (00:41)
[2023-11-20] MEDS ORDERED: Albumin (Human) 25gm/100ml 100 ML IV ONE (02:00)
[2023-11-20] MEDS ORDERED: FentaNYL Citrate 50 MCG/ML 2 ML Injection IV PRN (03:05)
[2023-11-20 03:17] VITALS: BP 92/42
[2023-11-20 05:28] LABS: BASOPHILS ABSOLUTE AUTO 0.06 K/mm3 (0.00-0.23); BASOPHILS PERCENT AUTO 0 % (0-2); EOSINOPHILS ABSOLUTE AUTO 0.27 K/mm3 (0.00-0.68); EOSINOPHILS PERCENT AUTO 2 % (0-6); Hematocrit 29.7 % (33.0-51.0); Hemoglobin 9.3 g/dL (11.5-16.0); IMMATURE GRAN ABSOLUTE AUTO 0.07 K/mm3 (0.00-0.10); IMMATURE GRAN PERCENT AUTO 1 % (0-1); LYMPHOCYTES PERCENT AUTO 20 % (21-46); MONOCYTES ABSOLUTE AUTO 1.19 K/mm3 (0.16-1.47); MONOCYTES PERCENT AUTO 9 % (4-13); Mean Corpuscular HGB 26.4 pg (26.0-34.0); Mean Corpuscular HGB Conc 31.3 g/dL (31.5-36.5); Mean Corpuscular Volume 84 fL (80-100); Mean Platelet Volume 10.3 fL (9.1-12.4); NEUTROPHILS ABSOLUTE AUTO 9.44 K/mm3 (1.96-9.15); NEUTROPHILS PERCENT AUTO 68 % (41-73); Platelet Count 286 K/mm3 (150-400); RDW Coefficient Variation 14.5 % (11.7-14.2); RDW Standard Deviation 44.5 fL (35.1-46.3); Red Blood Cell Count 3.52 M/mm3 (3.80-5.20); White Blood Cell Count 13.83 K/mm3 (4.00-11.30)
[2023-11-20 05:40] LABS: International Normalized Ratio 1.05; Prothrombin Time Results 11.2 Sec (9.7-11.5)
[2023-11-20 06:09] LABS: Albumin, Blood 3.2 g/dL (3.4-5.0); Albumin/Globulin Ratio 0.8 (0.8-1.8); Bilirubin, Total 0.4 mg/dL (0.1-1.0); Bun/Creatinine Ratio 12.9 (12.0-20.0); Calcium, Blood 11.5 mg/dL (8.5-10.1); Creatinine, Blood 1.39 mg/dL (0.40-1.00); Globulin, Blood 3.9 g/dL (2.2-4.0); Potassium, Blood 4.2 mmol/L (3.5-5.5); Total Protein, Blood 7.1 g/dL (6.4-8.2)
[2023-11-20 07:05] VITALS: BP 112/61
[2023-11-20] MEDS ORDERED: Insulin Human Lispro 100 Units/ML 3ML Syringe SC SCH (07:30)
[2023-11-20] MEDS ORDERED: Enoxaparin 40 MG/0.4 ML SYR SC SCH (09:00)
[2023-11-20] MEDS ORDERED: Bisacodyl 10 MG Supp PR PRN (11:20)
[2023-11-20] MEDS ORDERED: Magnesium Hydroxide Conc 10 ML UDC PO PRN (11:20)
[2023-11-20 15:19] VITALS: BP 97/44
[2023-11-20] MEDS ORDERED: Lactated Ringer's 500 ML IV SCH (16:00)
[2023-11-20] MEDS ORDERED: Glycerin Adult Supp 1 EA PR PRN (16:00)
[2023-11-20] MEDS ORDERED: Lactulose 10 GM/15 ML UDC PO PRN (16:00)
--- NOTE | 2023-11-20 17:47 | NUR ---
SHIFT SUMMARY PATIENT WITH PAIN, MEDICATED PER EMAR BEGINNING OF SHIFT AND WILL MEDICATE PER EMAR. SHE IS REPORTING PASSING GAS NOW THAT SHE HAS HAD A SUPPOSITORY AND MILK OF MAGNESIA. TOLERATED WATER, TEA AND PUDDING. SHE IS UP AD MARV IN ROOM AND COOPERATIVE WITH CARE. SHE IS ABLE TO MAKE HER NEEDS KNOWN. AOX4. BED IN LOW POSITION, CALL LIGHT IN REACH.
[2023-11-20] MEDS ORDERED: Lactulose 20 GM/30 ML UDC PO PRN (18:45)
[2023-11-20 19:10] VITALS: BP 105/52
[2023-11-20] MEDS ORDERED: Methenamine 1 GM TAB PO SCH (21:00)
[2023-11-20] MEDS ORDERED: Sennosides 8.6 MG Tab PO SCH (21:00)
[2023-11-20] MEDS ORDERED: Docusate Sodium 100 MG Cap PO SCH (21:00)
[2023-11-20] MEDS ORDERED: Diazepam 10 MG Tab XX PRN (21:00)
[2023-11-20] MEDS ORDERED: Diazepam 5 MG Tab XX PRN (21:40)
[2023-11-21 02:03] VITALS: BP 123/68
--- NOTE | 2023-11-21 05:09 | NUR ---
NOC SHIFT SUMMARY PT HAS BEEN NPO SINCE MIDNIGHT. SHE HAS STILL NOT HAD A BM DESPITE BOWEL CARE. SP CATH WITH YELLOW, CLOUDY URINE. IVF SALINE LOCKED AFTER 500CC INFUSION. NO N/V. PT ATE HALF A SANDWICH BEFORE MIDNIGHT AND KEPT IT DOWN WITH NO NAUSEA. BOWEL TONES ARE PRESENT BUT HYPOACTIVE. CALL LIGHT WITHIN REACH.
[2023-11-21 06:18] LABS: BASOPHILS ABSOLUTE AUTO 0.07 K/mm3 (0.00-0.23); BASOPHILS PERCENT AUTO 1 % (0-2); EOSINOPHILS ABSOLUTE AUTO 0.26 K/mm3 (0.00-0.68); EOSINOPHILS PERCENT AUTO 2 % (0-6); Hematocrit 30.4 % (33.0-51.0); Hemoglobin 9.2 g/dL (11.5-16.0); IMMATURE GRAN ABSOLUTE AUTO 0.08 K/mm3 (0.00-0.10); IMMATURE GRAN PERCENT AUTO 1 % (0-1); LYMPHOCYTES ABSOLUTE AUTO 3.01 K/mm3 (0.84-5.20); LYMPHOCYTES PERCENT AUTO 21 % (21-46); MONOCYTES ABSOLUTE AUTO 1.33 K/mm3 (0.16-1.47); MONOCYTES PERCENT AUTO 9 % (4-13); Mean Corpuscular HGB 26.1 pg (26.0-34.0); Mean Corpuscular HGB Conc 30.3 g/dL (31.5-36.5); Mean Corpuscular Volume 86 fL (80-100); Mean Platelet Volume 10.9 fL (9.1-12.4); NEUTROPHILS ABSOLUTE AUTO 9.47 K/mm3 (1.96-9.15); NEUTROPHILS PERCENT AUTO 67 % (41-73); Platelet Count 282 K/mm3 (150-400); RDW Coefficient Variation 14.5 % (11.7-14.2); RDW Standard Deviation 45.2 fL (35.1-46.3); Red Blood Cell Count 3.53 M/mm3 (3.80-5.20); White Blood Cell Count 14.22 K/mm3 (4.00-11.30)
[2023-11-21 06:58] LABS: Albumin, Blood 2.7 g/dL (3.4-5.0); Albumin/Globulin Ratio 0.7 (0.8-1.8); Bilirubin, Total 0.3 mg/dL (0.1-1.0); Bun/Creatinine Ratio 13.2 (12.0-20.0); Calcium, Blood 10.5 mg/dL (8.5-10.1); Creatinine, Blood 1.21 mg/dL (0.40-1.00); Potassium, Blood 4.2 mmol/L (3.5-5.5); Total Protein, Blood 6.7 g/dL (6.4-8.2)
[2023-11-21 07:00] VITALS: BP 111/51
[2023-11-21] MEDS ORDERED: Lactulose 200 GM/300 ML Enema 300ML BTL PR SCH (08:00)
[2023-11-21] MEDS ORDERED: NS 250 ML IV ONE (10:55)
[2023-11-21] MEDS ORDERED: NS 500 ML IV ONE ×2 (14:01→14:10)
[2023-11-21] MEDS ORDERED: FentaNYL Citrate 50 MCG/ML 2 ML Injection ONE ×2 (14:10→14:42)
[2023-11-21] MEDS ORDERED: Midazolam HCl 1MG / ML 2ML Vial ONE ×2 (14:10→14:42)
[2023-11-21 15:32] VITALS: BP 140/81
--- NOTE | 2023-11-21 16:55 | NUR ---
SHIFT SUMMARY: PT IS A&OX4/INDEPENDENT IN THE ROOM; CALLS APPROPRIATELY/MAKES NEEDS KNOWN. HER URINE IS CLOUDY YELLOW; NO BLOOD. SHE RECEIVED A LACTULOSE ENEMA TODAY; TOLERATED FAIR. SHE HAD A VERY SMALL BM PRIOR TO BEING TAKEN DOWN FOR HER PROCEDURE FOR A R SIDE NEPHROSTOMY TUBE. PATIENT C/O PAIN IN HER ABD AND VAGINA. NEPHROSTOMY PLACEMENT WENT WELL NO COMPLICATIONS. PATIENT TOLERATED PROCEDURE WELL. PATIENT ALERT AND ORIENTED WHEN RETURNED TO THE UNIT. PATIENT TOLERATING LIQUIDS AND FOOD WELL POST PROCEDURE. CALL MADE TO DR. LANDA REGARDING BLOOD SUGARS AND STATES THAT IF PATIENT ISN'T EATING TO CHECK Q6; IF PATIENT IS ISN'T NOT TO CHECK BLOOD SUGAR. ALSO NOTIFIED DR. LANDA THAT PATIENT REFUSED HER 1600 LACTULOSE ENEMA DUE TO STATING THAT HER SIDE IS CRAMPING AND WOULD LIKE TO WAIT. PATIENT IS CURRENT IN HER BED, ASLEEP-RESP EVEN AND UNLABORED, CALL LIGHT WITHIN REACH, NO SIGNS OR SYMPTOMS OF DISTRESS, PLAN OF CARE ONGOING.
[2023-11-21 20:15] VITALS: BP 135/68
[2023-11-22 03:42] VITALS: BP 130/64
[2023-11-22 05:58] LABS: BASOPHILS ABSOLUTE AUTO 0.07 K/mm3 (0.00-0.23); BASOPHILS PERCENT AUTO 1 % (0-2); EOSINOPHILS ABSOLUTE AUTO 0.19 K/mm3 (0.00-0.68); EOSINOPHILS PERCENT AUTO 1 % (0-6); Hematocrit 29.9 % (33.0-51.0); Hemoglobin 9.2 g/dL (11.5-16.0); IMMATURE GRAN PERCENT AUTO 1 % (0-1); LYMPHOCYTES PERCENT AUTO 16 % (21-46); MONOCYTES ABSOLUTE AUTO 1.09 K/mm3 (0.16-1.47); MONOCYTES PERCENT AUTO 7 % (4-13); Mean Corpuscular HGB 26.5 pg (26.0-34.0); Mean Corpuscular HGB Conc 30.8 g/dL (31.5-36.5); Mean Corpuscular Volume 86 fL (80-100); Mean Platelet Volume 10.3 fL (9.1-12.4); NEUTROPHILS ABSOLUTE AUTO 10.98 K/mm3 (1.96-9.15); NEUTROPHILS PERCENT AUTO 74 % (41-73); Platelet Count 282 K/mm3 (150-400); RDW Coefficient Variation 14.4 % (11.7-14.2); RDW Standard Deviation 44.8 fL (35.1-46.3); Red Blood Cell Count 3.47 M/mm3 (3.80-5.20); White Blood Cell Count 14.83 K/mm3 (4.00-11.30)
[2023-11-22 06:20] LABS: Albumin, Blood 2.7 g/dL (3.4-5.0); Albumin/Globulin Ratio 0.6 (0.8-1.8); Bilirubin, Total 0.3 mg/dL (0.1-1.0); Bun/Creatinine Ratio 16.7 (12.0-20.0); Calcium, Blood 10.6 mg/dL (8.5-10.1); Creatinine, Blood 0.84 mg/dL (0.40-1.00); Globulin, Blood 4.2 g/dL (2.2-4.0); Potassium, Blood 4.3 mmol/L (3.5-5.5); Total Protein, Blood 6.9 g/dL (6.4-8.2)
--- NOTE | 2023-11-22 07:19 | NUR ---
Patient alert and oriented x4, VSS. Nephrostomy to right flank intact, draining appropriately, output initially dark red/clear but transitioned to tea colored/clear towards end of shift. Gonzalez catheter in place, draining appropriately, yellow/justus cloudy output. PIV replaced to left AC, Rocephin tolerated well. x1 dose IV fentanyl for report of right flank pain, tolerated well. Patient voicing eagerness for discharge.
[2023-11-22 07:35] VITALS: BP 109/76
[2023-11-22] MEDS ORDERED: Amoxicillin 875 MG Tab PO SCH (09:00)
[2023-11-22] MEDS ORDERED: Lactulose 20 GM/30 ML UDC PO SCH (11:00)
[2023-11-22] MEDS ORDERED: AMOX875 PO (12:15)
--- NOTE | 2023-11-22 13:51 | NUR ---
PATIENT EXPRESSES CONCERN WITH DISCHARGE SINCE SHE HAS YET TO HAVE A BOWEL MOVEMENT. SHE FEELS THAT IF SHE IS DISCHARGE SHE WILL COME BACK. DISCUSSED WITH PATIENT THAT WE HAVE ORDERED BOWEL MEDS; BUT SHE HASN'T BEEN WILLING TO RECEIVE THE LACTULOSE ENEMAS. ADVISED PATIENT THAT WE WOULD LIKE TO ADMINISTER THEM TO HELP IMPLEMENT A BOWEL MOVEMENT. PATIENT VOICES THAT THEY DON'T WORK AND THAT HER STOMACH HURTS AND THE ENEMAS MAKE IT WORSE. I EXPRESSED UNDERSTANDING WITH THE PATIENT'S CONCERNS, BUT TOLD HER THAT SOME DISCOMFORT IS TO HAPPEN. ORAL LACTULOSE AND AN SUPPOSITORY WAS ADMINSTERED. NO STOOL FELT DURING DIGTIAL EXAM; FINGER CAME OUT CLEAN. CALL MADE TO DR. KIDD AND NOTIFIED HIM OF THE ABOVE. HE STATES THAT HE WILL COME SPEAK WITH THE PATIENT.
[2023-11-22 15:36] VITALS: BP 142/78
--- NOTE | 2023-11-22 16:18 | NUR ---
DISCHARGE NOTE: DR. KIDD ADVISED TO GIVE PATIENT PAIN MEDICATION AFTER HE VISITED WITH PATIENT AFTER I LAST SPOKE WITH HIM ABOUT PATIENT'S CONCERNS. PAIN MEDICATION ADMINISTERED TO PATIENT AND PATIENT REQUEST TO GO HOME. NOTIFIED DR. KIDD; HE WROTE A PRESCRIPTION FOR PAIN MEDICATION FOR PATIENT AND PATIENT PREPARED FOR D/C. DISCUSSED DISCHARGE WITH PATIENT AND EDUCATED ON NEPH TUBE AND BAG. PATIENT GOT HERSELF DRESSED AND COLLECTED HER BELONGINGS. PATIENT WHEELED DOWN VIA WHEELCHAIR BY BOW TACKER AND WAS PICKED UP BY FAMILY MEMEBER. NO SIGNS OR SYMPTOMS OF DISTRESS DURING DISCHARGE.
== END 2023-11-22 16:08 | disposition home health service (06) | DRG 687 ==
LOC: ER 15:27 → MEDS 15:28 → ENPENDDIS 11-22 11:54 → MEDS 11-22 16:08
PROVIDERS: Physician Assistant; Student in an Organized Health Care Education/Training Program; ADMIT Internal Medicine
PROC: 0T9330Z Drainage of Right Kidney Pelvis with Drainage Device, Percutaneous Approach (ICD-10-PCS; principal; 2023-11-21)
PROC: BT111ZZ Fluoroscopy of Right Kidney using Low Osmolar Contrast (ICD-10-PCS; 2023-11-21)
DX: C67.3 Malignant neoplasm of anterior wall of bladder (principal); E87.1 Hypo-osmolality and hyponatremia; N13.6 Pyonephrosis; N17.9 Acute kidney failure, unspecified; K59.09 Other constipation; E11.9 Type 2 diabetes mellitus without complications; R31.9 Hematuria, unspecified; D50.0 Iron deficiency anemia secondary to blood loss (chronic); E83.52 Hypercalcemia; I10 Essential (primary) hypertension; I25.10 Atherosclerotic heart disease of native coronary artery without angina pectoris; B95.2 Enterococcus as the cause of diseases classified elsewhere; G89.4 Chronic pain syndrome; F41.9 Anxiety disorder, unspecified; Z93.6 Other artificial openings of urinary tract status; Z88.8 Allergy status to other drugs, medicaments and biological substances; Z88.5 Allergy status to narcotic agent; Z88.1 Allergy status to other antibiotic agents; I25.2 Old myocardial infarction; Z79.2 Long term (current) use of antibiotics
CPT/HCPCS: 36415; 50432; 74177; 80053; 81001; 82947; 83690; 83880; 85025; 85610; 87077; 87086; 87186; 96361; 96365; 96367; 96372; 96374-59; 96375; 99152; 99284-25; A9270; C1729; C1769; G0378; J0696; J1650; J1885; J2250; J2270; J2405; J3010; J7040; J7050; J7120; P9047; Q9967